=== PATIENT | female | born 1970 | race Asian ===

== ENCOUNTER 2019-11-10 15:10 | Inpatient (IN) | payer BC ==
[~2019-11-10] VITALS: Ht 160 cm; Wt 59.0 kg
[2019-11-10 15:25] VITALS: Ht 160 cm; Wt 59.0 kg
[2019-11-10 17:37] LABS: BILIRUBIN TOTAL 0.2 mg/dL (0.20-1.00); CALCIUM 8.2 mg/dL (8.5-10.1); CARBON DIOXIDE 18.6 mmol/L (21-32)
[2019-11-10 17:42] LABS: ALBUMIN 2.6 g/dL (3.4-5.0); CREATININE SERUM 9.6 mg/dL (0.6-1.0); POTASSIUM SERUM 5.8 mmol/L (3.5-5.1)
[2019-11-10 18:01] LABS: BASOPHIL % 0.1 % (0-2); PLATELET COUNT 343 x10^3mcL (130-400)
[2019-11-10 18:02] LABS: RED CELL DISTRIBUTION WIDTH 15.8 % (11.5-14.5)
[2019-11-10 18:29] LABS: rbc morphology (normal/abnorm) ABNORMAL (NORMAL)
[2019-11-10 19:52] LABS: CALCIUM 7.9 mg/dL (8.5-10.1); CARBON DIOXIDE 16.1 mmol/L (21-32); POTASSIUM SERUM 5.4 mmol/L (3.5-5.1)
[2019-11-10 20:45] LABS: microscopic required? YES; urine erythrocyte 3+ (NEGATIVE)
[2019-11-10 21:58] VITALS: BP 125/78
[2019-11-10 23:30] VITALS: BP 124/72
[2019-11-11 03:13] VITALS: BP 115/59
[2019-11-11 07:45] VITALS: BP 113/64
[2019-11-11 07:55] LABS: BASOPHIL % 0.1 % (0-2); PLATELET COUNT 228 x10^3mcL (130-400)
[2019-11-11 08:07] LABS: RED CELL DISTRIBUTION WIDTH 15.1 % (11.5-14.5)
[2019-11-11 08:13] LABS: CARBON DIOXIDE 16.6 mmol/L (21-32); MAGNESIUM 2.7 mg/dL (1.8-2.4); POTASSIUM SERUM 5.2 mmol/L (3.5-5.1)
[2019-11-11 08:20] LABS: CREATININE SERUM 9.4 mg/dL (0.6-1.0)
[2019-11-11 10:53] LABS: rbc morphology (normal/abnorm) NORMAL (NORMAL)
[2019-11-11 11:38] VITALS: BP 115/67
[2019-11-11 15:50] VITALS: BP 127/67
[2019-11-11 18:30] VITALS: BP 123/77
[2019-11-11 19:36] VITALS: BP 105/67
== END 2019-11-11 21:43 | disposition short-term general hospital (02) | DRG 811 ==
LOC: ED 15:10 → DU 18:12 → IC 18:12 → DU 19:08 → IC 21:22
PROVIDERS: Emergency Medicine; Radiology Diagnostic Radiology; ADMIT Family Medicine
PROC: 30233N1 Transfusion of Nonautologous Red Blood Cells into Peripheral Vein, Percutaneous Approach (ICD-10-PCS; 2019-11-10)
PROC: 0T9030Z Drainage of Right Kidney with Drainage Device, Percutaneous Approach (ICD-10-PCS; principal; 2019-11-11 11:30)
DX: D62 Acute posthemorrhagic anemia (principal); N17.0 Acute kidney failure with tubular necrosis; E43 Unspecified severe protein-calorie malnutrition; N39.0 Urinary tract infection, site not specified; E87.2 Acidosis; E87.5 Hyperkalemia; E83.51 Hypocalcemia; Z91.040 Latex allergy status; Z90.710 Acquired absence of both cervix and uterus; Z68.21 Body mass index [BMI] 21.0-21.9, adult
CPT/HCPCS: 50432; G0378; J0696; J1940; J2001; J2250; J2270; J2405; J3010; J3490; P9016; Q0092; Q0163; Q9967